=== PATIENT | male | born 1965 | race African-American/Black ===

== ENCOUNTER 2017-11-13 09:57 | Emergency (ER) | payer SELFPAY ==
[~2017-11-13] VITALS: Ht 175.3 cm; Wt 72.6 kg
[2017-11-13 10:09] VITALS: BP 153/88
[2017-11-13] MEDS ORDERED: IBUPROFEN600 MG ORAL (10:28)
[2017-11-13 11:11] VITALS: BP_SYST 144; BP_SYST 153; BP_DIAS 76; BP_DIAS 88
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
== END 2017-11-13 11:11 | disposition home or self-care (01) ==
LOC: EDBD 09:57 → EMR 10:30
DX: S00.83XA Contusion of other part of head, initial encounter (principal); Y04.2XXA Assault by strike against or bumped into by another person, initial encounter; Y92.9 Unspecified place or not applicable
CPT/HCPCS: 99283